=== PATIENT | male | born 1990 | race Caucasian/White ===

== ENCOUNTER 2017-04-09 09:09 | Day surgery (SDC) | payer OTHER ==
[2017-03-23 07:32] VITALS: BMI 27.0
[~2017-04-09] VITALS: Ht 172.7 cm; Wt 81.8 kg
[~2017-04-09 09:09] MED LIST: ASPI-391 PO; CIPROFLOXACIN / D5W 400 MG IV SCH; CLR10 PO; IBUP600T44 PO; LACTATED RINGER'S 1000ML 1,000 ML IV SCH
[2017-04-09 09:35] VITALS: BP 115/72; PULSE 63; TEMP 36.7; O2SAT 100; Ht 172.7 cm; Wt 81.8 kg
--- NOTE | 2017-04-09 10:45 | History & Physical Bridge Note ---
H&P Re-Evaluation Bridge Note: I have examined the patient, reviewed the History & Physical and in the interval since the performance of the History & Physical I have noted the following changes of clinical significance: No changes noted
[2017-04-09] MEDS ORDERED: BUPIVACAINE 0.5 % 5 MG/1 ML MPF 30ML VIAL ONE (10:50)
[2017-04-09] MEDS ORDERED: FENTANYL CITRATE INJ 50 MCG/1 ML 2 ML VIAL ONE ×2 (11:02→12:33)
[2017-04-09] MEDS ORDERED: KETOROLAC TROMETHAMINE 30 MG/ML VIAL ONE (11:50)
[2017-04-09] MEDS ORDERED: DEXAMETHASONE SOD INJ 4 MG/ML VIAL ONE (11:50)
[2017-04-09] MEDS ORDERED: PROPOFOL IV EMULSION 10 MG/ML 20 ML VIAL IV ONE (11:50)
[2017-04-09] MEDS ORDERED: LIDOCAINE 2% 20 MG/ML 5ML SYR IV ONE (11:50)
[2017-04-09] MEDS ORDERED: ONDANSETRON INJ 2 MG/ML 2 ML VIAL ONE (11:50)
--- NOTE | 2017-04-09 12:13 | [facility] Post Operative Brief Note ---
Immediate Operative Summary Operative Date Apr 09, 2017. Pre-Operative Diagnosis Left hydrocele Post-Operative Diagnosis same as preop Procedure(s) Performed Left Scrotal Hydrocelectomy Surgeon Dr. Keita Barman Surgeon(s) none Estimated Blood Loss 5 cc Findings Consistent with Post-Op Diagnosis Specimens A: left hydrocele sac Drains None Anesthesia Type General Complication(s) none Disposition Accompanied Pt To Recover: yes Disposition: Recovery Room / PACU
[2017-04-09] MEDS ORDERED: OXYC-57 PO (12:14)
--- NOTE | 2017-04-09 12:16 | Discharge Instructions ---
Discharge Instructions Date of Service Apr 09, 2017. Visit Reason for Visit: Left Hydrocele Discharge Discharge Diagnosis / Problem: Hydrocele Discharge Goals Goal(s): Therapeutic intervention Activity Recommendations Activity Limitations: per Instructions/Follow-up section Lifting Limitations: no more than 10 pounds, until after follow-up appointment Exercise/Sports Limitations: none, until after follow-up appointment May Resume Sexual Activity: after follow-up appointment Shower/Bathe: no limitations Anesthesia . Post Anesthesia Instructions: If you have had General Anesthesia or IV Sedation: * Do not drive today. * Resume driving when surgeon permits. * Do not make important decisions or sign legal documents today. * Call surgeon for: 1. Temperature elevations greater than 101 degrees F. 2. Uncontrollable pain. 3. Excessive bleeding. 4. Persistent nausea and vomiting. 5. Medication intolerance (nausea, vomiting or rash). * For nausea and vomiting use only clear liquids such as: tea, soda, bouillon until nausea subsides, then gradually increase diet as tolerated. * If you have any concerns or questions, call your surgeon's office. If physician is unavailable and it is an emergency, call 911 or go to the nearest emergency room. . Diet Recommendations Recommended Home Diet: resume previous diet Procedures Procedures Performed: Left Scrotal Hydrocelectomy Pending Studies Studies pending at discharge: no Medical Emergencies . Who to Call and When: Medical Emergencies: If at any time you feel your situation is an emergency, please call 911 immediately. . Non-Emergent Contact Non-Emergency issues call your: Urologist Call Non-Emergent contact if: temperature is above 101.5, your pain is not controlled . . "Provider Documentation" section prepared by Musa Keita. . [place] Drug Monitoring Program Search Results: patient reviewed within database
--- NOTE | 2017-04-09 12:28 | [facility] Operative Report ---
Operative Report Operative Date Apr 09, 2017. Pre-Operative Diagnosis Left hydrocele Post-Operative Diagnosis same as preop Procedure(s) Performed Left Scrotal Hydrocelectomy Surgeon Dr. Keita [employer] Saw Operator Surgeon(s) none Estimated Blood Loss 5 cc Findings moderate-sized left hydrocele Specimens A: left hydrocele sac Drains none Anesthesia Gen. Complication(s) None Disposition Recovery Room / PACU Indications 26-year-old white male with a left hydrocele that was bothersome to him being brought in for hydrocelectomy Description of Procedure After the induction of an adequate general anesthetic and appropriate timeout patient's lower abdomen and genitalia and scrotum were prepped with Betadine scrub and painted with Betadine paint and draped in a sterile fashion. Transverse incision was made in the left hemiscrotum through the skin and subcutaneous tissues and dartos layer exposing the tunica vaginalis. Tunica vaginalis was then freed from the surrounding scrotal wall using blunt dissection and then extruded from the wound. Incision was made in the tunica vaginalis and clear straw colored fluid was drained. Tunica vaginalis was then opened widely edges were trimmed and then cauterized for hemostasis. Tunica vaginalis was then folded behind the testicle lightly sutured in place with a 2- 0 Vicryl wound was then irrigated with sterile saline and any bleeding points were electrocoagulated testicle was then placed back in the left hemiscrotum in its normal anatomic position. Wound was closed in the following fashion the dartos layer was closed with a running locked 2-0 chromic skin was closed with a 3-0 chromic vertical mattress stitch. Half percent lidocaine was infiltrated around the incision. Wound was then washed and dried and Xeroform gauze and a dry sterile dressing and scrotal support were applied. All needle sponge and instrument counts were correct at the end of the case. The patient tolerated the procedure well and was taken to the recovery room in stable condition I attest to the content of the Intraoperative Record and any orders documented therein. Any exceptions are noted below.
[2017-04-09] MEDS ORDERED: EpHEDrine SULFATE INJ 50 MG/ML AMP IV PRN (12:30)
[2017-04-09] MEDS ORDERED: FENTANYL CITRATE INJ 50 MCG/1 ML 2 ML VIAL IV PRN (12:30)
[2017-04-09] MEDS ORDERED: ATROPINE SULFATE 0.1 MG/ML 5ML SYR IV PRN (12:30)
[2017-04-09] MEDS ORDERED: PROMETHAZINE HCL INJ 6.25 MG in SODIUM CHLORIDE 0.9% 50ML 50 ML IV PRN (12:30)
[2017-04-09] MEDS ORDERED: OXYCODONE/ACETAMINOPHEN 5-325 TAB PO PRN ×2 (12:30)
[2017-04-09] MEDS ORDERED: ONDANSETRON INJ 2 MG/ML 2 ML VIAL IV PRN (12:30)
--- NOTE | 2017-04-09 13:17 | Anesthesiology Progress Note ---
Anesthesia Post Op Note Date & Time Apr 09, 2017 at 13:16 Vital Signs Pain Intensity: 6 Vital Signs Past 12 Hours Date Time Temp Pulse Resp B/P (MAP) Pulse Ox O2 Delivery O2 Flow Rate FiO2 04/09/17 13:10 75 19 139/89 96 04/09/17 13:03 36.6 04/09/17 13:00 80 13 144/85 97 04/09/17 12:50 68 21 139/90 100 04/09/17 12:40 64 17 148/100 100 04/09/17 12:30 67 15 127/79 92 04/09/17 12:20 63 23 121/87 100 04/09/17 12:14 36.4 65 16 124/71 100 Nasal Cannula 4 04/09/17 12:14 65 16 121/71 100 04/09/17 09:35 36.7 63 18 115/72 (86) 100 Room Air Notes Mental Status: alert / awake / arousable, participated in evaluation Pt Amnestic to Procedure: Yes Nausea / Vomiting: adequately controlled Pain: adequately controlled Airway Patency, RR, SpO2: stable & adequate BP & HR: stable & adequate Hydration State: stable & adequate Anesthetic Complications: no major complications apparent
[2017-04-09 13:22] VITALS: BP 142/74; PULSE 85; TEMP 36.6; O2SAT 98
[2017-04-09 13:52] VITALS: BP_SYST 142; BP_SYST 147; BP_DIAS 74; BP_DIAS 83; PULSE 80; PULSE 85; TEMP 36.4; TEMP 36.6; O2SAT 98
== END 2017-04-09 14:15 | disposition home or self-care (01) ==
LOC: C.ACU 09:09
PROVIDERS: ATTEND Urology
DX: N43.3 Hydrocele, unspecified (principal); Z83.3 Family history of diabetes mellitus; Z80.42 Family history of malignant neoplasm of prostate; F17.200 Nicotine dependence, unspecified, uncomplicated